=== PATIENT | female | born 1945 | race Caucasian/White ===

== ENCOUNTER → 2016-10-10 | Outpatient (CLI) | payer OTHER | LOC: FIMAGING 12:48 | PROVIDERS: ATTEND Internal Medicine Hematology & Oncology | DX: Z12.31 Encounter for screening mammogram for malignant neoplasm of breast (principal); Z85.3 Personal history of malignant neoplasm of breast; Z80.3 Family history of malignant neoplasm of breast | CPT/HCPCS: G0202 ==

== ENCOUNTER 2017-01-23 13:38 | Emergency (ER) | payer OTHER ==
[2017-01-23 13:47] VITALS: BP 131/88; PULSE 94; RESP 18; TEMP 97.2; O2SAT 96
--- NOTE | 2017-01-23 13:59 | EDPHY ---
HPI/HX/ROS/PE/MDM Narrative: CHIEF COMPLAINT: Cough for 1 month HPI: The patient is a 71-year-old female who was a smoker but denies other medical problems. She complains of a cough that has been present for approximately the last month. She describes occasional production of white foamy material but no green or yellow sputum nor hemoptysis. She denies chest pain. She states she gets extra fatigued only when it is hot. She denies cold symptoms. The patient saw her primary physician 2 weeks ago who ordered an outpatient chest x-ray, but patient has been too busy to get this test. She called today to get the test done but was told it would take 2 days to schedule an appointment and she chose not to wait. REVIEW OF SYSTEMS: Aside from elements discussed in the HPI, a comprehensive 10-point review of systems was reviewed and is negative. PMH: History of remote breast cancer. No history of blood clot. SOCIAL HISTORY: Patient is an active smoker. She runs a nonprofit organization. Denies drug abuse. PHYSICAL EXAM: General:Patient is alert, in no acute distress. ENT:Eyes are normal to inspection. ENT inspection normal. Neck: Normal inspection. Full range of motion. Respiratory:No respiratory distress. Breath sounds normal bilaterally. Cardiovascular: Regular rate and rhythm. Strong peripheral pulses. Normal cap refill. Abdomen:The abdomen is nontender to palpation. There are no peritoneal signs. There are normal bowel sounds. Back: Normal to inspection. No tenderness to palpation. Skin: Normal color. No rash. Warm and dry. Extremities: Normal appearance. Full range of motion. Neuro: Oriented x3. Normal motor function. Normal sensory function. ED Course: Chest x-ray read by the radiologist as negative for pneumonia or other acute process. Viewed and interpreted by myself. MDM: This patient presents with 1 month of cough in the absence of other symptoms. Her chest x-ray shows only COPD. I suspect her symptoms are likely secondary to chronic bronchitis from continued smoking. See no evidence for pneumonia, PE , ACS, CHF. Patient is comfortable with the plan to follow up with her primary care physician. Cautioned her to please stop smoking. - Data Points Imaging Results: Imaging Impressions Chest X-Ray 01/23/17 13:55 Impression: 1. Hyperexpansion suggests COPD with no superimposed acute abnormality identified. 2. Stable basilar opacities probably scarring with possible minimal associated atelectasis. Imaging: Discussed imaging studies w/ call center support representative Radiologist, I viewed and interpreted images myself General Time Seen by Provider: 01/23/17 13:44 Initial Vital Signs: Initial Vital Signs Temperature (C) 36.2 C 01/23/17 13:42 Heart Rate 94 01/23/17 13:42 Respiratory Rate 18 01/23/17 13:42 Blood Pressure 131/88 H 01/23/17 13:42 O2 Sat (%) 96 01/23/17 13:42 O2 Delivery Mode Room Air Allergies/Adverse Reactions: No Known Allergies Allergy (Verified 04/25/14 07:41) Home Medications: Medication Instructions Recorded Sertraline HCl 04/25/14 Departure - Departure Disposition: Home, Routine, Self-Care Clinical Impression: Bronchitis, COPD (chronic obstructive pulmonary disease) Condition: Good Instructions: Chronic Bronchitis (ED) Additional Instructions: Follow-up with your primary physician within 1 week. Please try to stop smoking. Return to the emergency department for chest pain, shortness of breath , fever, coughing up blood or other concerns. Referrals: EULALIO KUMAR [Primary Care Provider] - As per Instructions
== END 2017-01-23 14:38 | disposition home or self-care (01) ==
LOC: CED 13:38
DX: J44.9 Chronic obstructive pulmonary disease, unspecified (principal); F17.200 Nicotine dependence, unspecified, uncomplicated; Z85.3 Personal history of malignant neoplasm of breast
CPT/HCPCS: 71020-PO

== ENCOUNTER 2017-09-17 16:17 | Emergency (ER) | payer OTHER ==
[2017-09-17 16:30] VITALS: PULSE 82; TEMP 98.2
[2017-09-17] MEDS ORDERED: LEVALBUTEROL 0.63 MG/3 ML DEYVIAL IH ONE ×2 (16:40→20:59)
[2017-09-17] MEDS ORDERED: predniSONE 20 MG TAB PO ONE (16:41)
--- NOTE | 2017-09-17 16:44 | EDPHY ---
H & P Time Seen by Provider: 09/17/17 16:25 HPI/ROS: CHIEF COMPLAINT: Shortness of breath x1 week, cough HISTORY OF PRESENT ILLNESS: 72-year-old female presents emergency department reporting that over the last week she has had increase in her somewhat baseline shortness of breath. Her friend describes a very harsh and anguish sounding cough. Patient reports the cough has been productive of sputum on occasion. Low-grade fever to 99 and 100.4 over the last 2 days. Patient was seen at an emergency department in 4 in 4 days ago was treated with azithromycin. She thinks the azithromycin helped her ear discomfort and her swollen lymph nodes in her neck but did not help her cough. If anything she feels that the cough is worsening. Patient denies a history of chronic bronchitis, COPD, asthma, or emphysema. She denies a cardiac history. She denies history of pulmonary embolism. Reviewed the patient's charts demonstrate that in January of this year she had chest x-ray consistent with COPD. Patient does have a Qvar inhaler which was prescribed by her primary care physician which she uses intermittently. She reports anterior chest discomfort when coughing. Complains of abdominal discomfort secondary to frequent coughing. Reports nausea but no vomiting. No diarrhea. No palpitations, lightheadedness, dizziness, or fainting. REVIEW OF SYSTEMS: Aside from elements discussed in the HPI, a comprehensive 10-point review of systems was reviewed and is negative. PAST MEDICAL HISTORY: Current smoker. Questionable COPD history. SOCIAL HISTORY: Smoker. Primary care physician is Norma Kumar MD VITAL SIGNS Reviewed by me. GENERAL: Well-developed, well-nourished, resting comfortably in no obvious respiratory distress. HEENT: Atraumatic. Eyes: No icterus, no injection. Mouth: moist mucous membranes. No erythema or lesions. Neck: supple with no adenopathy. LUNGS: Clear to auscultation, however deep respirations elicits a cough. Cough is harsh, with expiratory wheeze. CARDIAC: Regular rate and rhythm, no rubs, murmurs or gallops. ABDOMEN: Soft, nontender, nondistended, bowel sounds normal. BACK: No CVA tenderness. EXTREMITIES: No trauma. No edema. Range of motion is normal throughout. NEURO: Alert and oriented, grossly nonfocal. SKIN: Warm and dry, no rash. PSYCHIATRIC: Normal mentation, no agitation. Smoking Status: Current every day smoker Constitutional: Initial Vital Signs Temperature (C) 36.8 C 09/17/17 16:24 Heart Rate 82 09/17/17 16:24 Respiratory Rate 16 09/17/17 16:24 Blood Pressure 144/96 H 09/17/17 16:24 O2 Sat (%) 93 09/17/17 16:24 O2 Delivery Mode Room Air Allergies/Adverse Reactions: No Known Allergies Allergy (Verified 04/25/14 07:41) Home Medications: Medication Instructions Recorded Sertraline HCl 04/25/14 Azithromycin 09/17/17 Benzonatate [Tessalon Pearles (RX)] 100 mg PO TID PRN #20 cap 09/17/17 Doxycycline Hyclate [Vibramycin 100 mg PO BID #14 cap 09/17/17 100 MG (*)] Levalbuterol Inhaler [Xopenex Hfa 1 - 2 puffs IH TID PRN #1 mdi 09/17/17 Inhaler (*)] predniSONE [prednisone 10mg (RX)] 40 mg PO DAILY 3 Days tab 09/17/17 Medical Decision Making - Diagnostics EKG Interpretation: 12-LEAD EKG: Please see the full report in [facility]. My interpretation: normal sinus rhythm, no ST or T-wave changes Imaging Results: Imaging Impressions Chest X-Ray 09/17/17 16:41 Impression: 1. Left lateral basilar segment pneumonia with small effusion. 2. Possibly increasing pleurally based density at the right apex. Consider chest CT with IV contrast for further evaluation of the right apex, when the patient is clinically able. Results called to Dr. Akilah Shepard. Imaging: Discussed imaging studies w/ call center analyst Radiologist, I viewed and interpreted images myself ED Course/Re-evaluation: 72-year-old female, smoker, with a long history of shortness of breath and intermittent coughing of now presents with exacerbation of her symptoms. Patient received a Xopenex neb as she reports that albuterol makes her very anxious and jittery. She was given 60 mg of prednisone. EKG: Normal sinus rhythm Chest x-ray: Left lower lobe infiltrate. Discussed patient's chest x-ray with Dr. Roche. Left lower lobe infiltrate with small effusion. Also, patient has had increased density of a right apex pleural base lesion. CT scan with contrast recommended. Patient reports a allergy to iodine Review of the patient's records demonstrated patient has CT scan with IV contrast in 2010 for which she was premedicated and did well. Patient received 125 mg Solu-Medrol IV and Benadryl 25 mg IV. Report on the CT scan of the chest with contrast was called to me by Dr. Harvey. See the full report but multiple findings. Bibasilar atelectasis with no definitive pneumonia. Scarring appears to be present in the apices which will require 3-[address] scan follow-up. No definitive malignancy identified. CT scan is suggestive of pulmonary fibrosis and emphysema. I explained the results of the CT scan with the patient. She would prefer not to be placed on antibiotics at this time as she states that she does not do well with them. She will be discharged with Xopenex Metered dose inhaler, short course of prednisone, Tessalon Perles for her cough, and instructions for close follow up with her primary care physician. Differential Diagnosis: Differential diagnosis for the patient's shortness of breath was considered including but not limited to pulmonary infectious processes, COPD exacerbation, pulmonary emboli, pulmonary edema, congestive heart failure, and cardiac causes. - Data Points Laboratory Results: Laboratory Results 09/17/17 17:55 09/17/17 17:55 09/17/17 09/17/17 09/17/17 17:55 17:55 17:55 WBC 15.58 10^3/uL H 10^3/uL (3.80-9.50) RBC 4.04 10^6/uL L 10^6/uL (4.18-5.33) Hgb 13.3 g/dL g/dL (12.6-16.3) POC Hgb 13.6 gm/dL gm/dL (12.6-16.3) Hct 38.1 % % (38.0-47.0) POC Hct 40 % % (38-47) MCV 94.3 fL fL (81.5-99.8) MCH 32.9 pg pg (27.9-34.1) MCHC 34.9 g/dL g/dL (32.4-36.7) RDW 13.1 % % (11.5-15.2) Plt Count 372 10^3/uL 10^3/uL (150-400) MPV 10.9 fL fL (8.7-11.7) Neut % (Auto) 66.2 % % (39.3-74.2) Lymph % (Auto) 22.8 % % (15.0-45.0) [place] % (Auto) 8.6 % % (4.5-13.0) Eos % (Auto) 1.4 % % (0.6-7.6) Baso % (Auto) 0.5 % % (0.3-1.7) Nucleat RBC Rel Count 0.0 % % (0.0-0.2) Absolute Neuts (auto) 10.30 10^3/uL H 10^3/uL (1.70-6.50) Absolute Lymphs (auto) 3.56 10^3/uL H 10^3/uL (1.00-3.00) Absolute Monos (auto) 1.34 10^3/uL H 10^3/uL (0.30-0.80) Absolute Eos (auto) 0.22 10^3/uL 10^3/uL (0.03-0.40) Absolute Basos (auto) 0.08 10^3/uL 10^3/uL (0.02-0.10) Absolute Nucleated RBC 0.00 10^3/uL 10^3/uL (0-0.01) Immature Gran % 0.5 % % (0.0-1.1) Immature Gran # 0.08 10^3/uL 10^3/uL (0.00-0.10) POC Sodium 138 mEq/L mEq/L (135-145) Sodium 139 mEq/L mEq/L (135-145) POC Potassium 3.5 mEq/L mEq/L (3.3-5.0) Potassium 3.8 mEq/L mEq/L (3.5-5.2) POC Chloride 103 mEq/L mEq/L (97-110) Chloride 101 mEq/L mEq/L (97-110) Carbon Dioxide 22 mEq/l mEq/l (22-31) Anion Gap 16 mEq/L mEq/L (8-16) POC BUN 16 mg/dL mg/dL (7-23) BUN 15 mg/dL mg/dL (7-23) Creatinine 0.8 mg/dL mg/dL (0.6-1.0) POC Creatinine 0.7 mg/dL mg/dL (0.6-1.0) Estimated GFR > 60 Glucose 108 mg/dL H mg/dL (70-100) POC Glucose 116 mg/dL H mg/dL (70-100) Calcium 9.5 mg/dL mg/dL (8.5-10.4) Medications Given: Discontinued Medications Diphenhydramine HCl (Benadryl Injection) 25 mg IVP EDNOW ONE Stop: 09/17/17 18:22 Last Admin: 09/17/17 18:31 Dose: 25 mg Levalbuterol (Xopenex 0.63mg Neb) 0.63 mg IH EDNOW ONE Stop: 09/17/17 16:41 Last Admin: 09/17/17 16:51 Dose: 0.63 mg Methylprednisolone Sodium Succinate (Solu-Medrol) 125 mg IVP EDNOW ONE Stop: 09/17/17 18:22 Last Admin: 09/17/17 18:36 Dose: 125 mg Prednisone (Prednisone) 60 mg PO EDNOW ONE Stop: 09/17/17 16:42 Last Admin: 09/17/17 16:50 Dose: 60 mg Point of Care Test Results: 09/17/17 17:55 POC Sodium 138 POC Potassium 3.5 POC Chloride 103 POC BUN 16 POC Creatinine 0.7 POC Glucose 116 H Departure - Departure Disposition: Home, Routine, Self-Care Clinical Impression: Chronic obstructive pulmonary disease with acute exacerbation, Cough Condition: Good Instructions: Acute Bronchitis (ED), COPD (Chronic Obstructive Pulmonary Disease) (ED), Chronic Cough (ED), How to Use a Nebulizer (ED) Additional Instructions: Please use the xopenex metered dose inhaler 3-4 times a day to help control your coughing and wheezing and shortness of breath. You been given a prescription of prednisone. Please take this as directed for the next 3 days starting tomorrow. You been given a prescription of doxycycline. Please begin taking this as directed. You may use the Tessalon Perles to help control your cough. Mucinex may also be helpful to thin the secretions. Drink plenty of water with Mucinex. Seek care urgently or follow up at the emergency department if you develop a fever, worsening symptoms despite the above treatment, significant shortness of breath, chest pain, vomiting, or other concerns. Follow up with your primary care physician. I strongly encourage you to consider pulmonary function tests. You will also need a repeat CT scan of your chest without IV contrast in 3-6 months. Referrals: NORMA KUMAR [Primary Care Provider] - As per Instructions Prescriptions: Benzonatate [Tessalon Pearles (RX)] 100 mg PO TID PRN #20 cap PRN Reason: Cough Doxycycline Hyclate [Vibramycin 100 MG (*)] 100 mg PO BID #14 cap Levalbuterol Inhaler [Xopenex Hfa Inhaler (*)] 1 - 2 puffs IH TID PRN #1 mdi PRN Reason: cough, shortness of breath predniSONE [prednisone 10mg (RX)] 40 mg PO DAILY 3 Days tab
--- NOTE | 2017-09-17 17:08 | CPEKG ---
Heart Rate: 84 RR Interval: 714 P-R Interval: 144 QRSD Interval: 90 QT Interval: 356 QTC Interval: 421 P [place]: 46 QRS [place]: 12 T Wave [place]: 39 EKG Severity - NORMAL ECG - EKG Impression: SINUS RHYTHM Electronically Signed By: Akilah Shepard 17-Sep-2017 18:56:54
[2017-09-17] MEDS ORDERED: IOPAMIDOL (ISOVUE 370) 100 ML BTL IV ONE (18:00)
[2017-09-17 18:03] LABS: PLATELET COUNT 372 10^3/uL (150-400)
[2017-09-17] MEDS ORDERED: methylPREDNISolone SOD SUCC 125 MG/2 ML VIAL IVP ONE (18:21)
[2017-09-17 21:29] VITALS: BP 105/73; RESP 20; O2SAT 99
== END 2017-09-17 21:29 | disposition home or self-care (01) ==
LOC: CED 16:18
DX: J44.1 Chronic obstructive pulmonary disease with (acute) exacerbation (principal); F17.200 Nicotine dependence, unspecified, uncomplicated
CPT/HCPCS: 71046; 71275; 93005; 96374; 96375; 99285; J1200; J2930; J7512; Q9967; 80048-PO; 82947-QW; 85025-PO

== ENCOUNTER → 2017-11-26 | Outpatient (CLI) | payer OTHER | LOC: FIMAGING 11:52 | PROVIDERS: ATTEND Internal Medicine Hematology & Oncology | DX: Z12.31 Encounter for screening mammogram for malignant neoplasm of breast (principal); Z85.3 Personal history of malignant neoplasm of breast ==

== ENCOUNTER 2018-07-22 14:12 | Emergency (ER) | payer OTHER ==
[2018-07-22] MEDS ORDERED: IPRATROPIUM/ALBUTEROL 3 ML DEYVIAL IH ONE (14:42)
[2018-07-22] MEDS ORDERED: predniSONE 20 MG TAB PO ONE (14:42)
[2018-07-22] MEDS ORDERED: AZITHROMYCIN 250 MG TAB PO ONE (14:43)
--- NOTE | 2018-07-22 14:46 | EDPHY ---
H & P Stated Complaint: SOB Time Seen by Provider: 07/22/18 14:36 HPI/ROS: CHIEF COMPLAINT: Cough HISTORY OF PRESENT ILLNESS: The patient is a 73-year-old female with a history of COPD who complains of having sinus congestion and upper respiratory symptoms for the last week and now deep cough productive of yellow sputum. No fevers. No body aches. No chest pain. She states that this is happened several times to her before and that she has always required antibiotics to get better. She does not wear oxygen at home. She does continue to smoke. She does not take any immunosuppressants at baseline. Severity: Moderate Modifying factors: None REVIEW OF SYSTEMS: Constitutional: denies: chills, fever, recent illness, recent injury EENTM: denies: blurred vision, double vision, nose congestion Respiratory: See HPI Cardiac: denies: chest pain, irregular heart rate, lightheadedness, palpitations Gastrointestinal/Abdominal: denies: abdominal pain, diarrhea, nausea, vomiting, blood streaked stools Genitourinary: denies: dysuria, frequency, hematuria, pain Musculoskeletal: denies: joint pain, muscle pain Skin: denies: lesions, rash, jaundice, bruising Neurological: denies: headache, numbness, paresthesia, tingling, dizziness, weakness Hematologic/Lymphatic: denies: blood clots, easy bleeding, easy bruising Immunologic/allergic: denies: HIV/AIDS, transplant 10 systems reviewed and negative except as noted EXAM: GENERAL: Well-appearing, well-nourished and in no acute distress. HEAD: Atraumatic, normocephalic. EYES: Pupils equal round and reactive to light, extraocular movements intact, sclera anicteric, conjunctiva are normal. ENT: TMs normal, nares patent, oropharynx clear without exudates. Moist mucous membranes. NECK: Normal range of motion, supple without lymphadenopathy or JVD. LUNGS: Bilateral lower lobe rhonchi, no wheezing, saturating 96% on room air HEART: Regular rate and rhythm without murmurs, rubs or gallops. ABDOMEN: Soft, nontender, normoactive bowel sounds. No guarding, no rebound. No masses appreciated. BACK: No CVA tenderness, no spinal tenderness, step-offs or deformities EXTREMITIES: Normal range of motion, no pitting or edema. No clubbing or cyanosis. NEUROLOGICAL: Cranial nerves II through XII grossly intact. Normal speech, normal gait. 5/5 strength, normal movement in all extremities, normal sensation , normal reflexes PSYCH: Normal mood, normal affect. SKIN: Warm, dry, normal turgor, no visible rashes or lesions. Source: Patient Exam Limitations: No limitations - Personal History Current Tetanus/Diphtheria Vaccine: No Current Tetanus Diphtheria and Acellular Pertussis (TDAP): No - Medical/Surgical History Hx Asthma: No Hx Chronic Respiratory Disease: No Hx Diabetes: No Hx Cardiac Disease: No Hx Renal Disease: No Hx Cirrhosis: No Hx Alcoholism: No Hx HIV/AIDS: No Hx Splenectomy or Spleen Trauma: No Other PMH: COPD,. Occasional allergies. Breast ca 7 yrs ago/lumpectomy and radiation - Family History Significant Family History: No pertinent family hx - Social History Smoking Status: Current every day smoker Alcohol Use: Sober Drug Use: None Constitutional: Initial Vital Signs Temperature (C) 36.5 C 07/22/18 14:28 Heart Rate 80 07/22/18 14:28 Respiratory Rate 20 07/22/18 14:28 Blood Pressure 164/88 H 07/22/18 14:28 O2 Sat (%) 94 07/22/18 14:28 O2 Delivery Mode Room Air Allergies/Adverse Reactions: No Known Allergies Allergy (Verified 07/22/18 14:27) Home Medications: Medication Instructions Recorded Sertraline HCl 04/25/14 Azithromycin 09/17/17 Benzonatate [Tessalon Pearles (RX)] 100 mg PO TID PRN #20 cap 09/17/17 Doxycycline Hyclate [Vibramycin 100 mg PO BID #14 cap 09/17/17 100 MG (*)] Levalbuterol Inhaler [Xopenex Hfa 1 - 2 puffs IH TID PRN #1 mdi 09/17/17 Inhaler (*)] predniSONE [prednisone 10mg (RX)] 40 mg PO DAILY 3 Days tab 09/17/17 Azithromycin 250 mg PO DAILY #4 tablet 07/22/18 predniSONE 60 mg PO DAILY #15 tab 07/22/18 Medical Decision Making - Diagnostics Imaging Results: Imaging Impressions Chest X-Ray 07/22/18 14:40 Impression: 1. No pneumonia or acute process. 2. Chronic bronchitis and interstitial lung disease is similar to August 2017. Imaging: Discussed imaging studies w/ director of testing Radiologist ED Course/Re-evaluation: The patient is requesting antibiotics as well as a breathing treatment and steroids. She states that the combination has worked well for her in the past. I will also obtain a chest x-ray because of the respiratory findings on exam. She is otherwise well-appearing, afebrile and not hypoxic. She does not wish to have blood work. I do not think that she will require admission. 3:15 p.m. we discussed the x-ray results. She had pneumonia during her x-ray in August as well. It looks similar to today could represent scarring. Pneumonia fits clinically with her exam findings and history. I will start her on azithromycin which she states worked well for her last time. She is also requesting prednisone. She will use her inhaler at home as needed. We discussed indications for returning. Differential Diagnosis: Partial list of the Differential diagnosis considered include but were not limited to; pneumonia, COPD exacerbation, bronchitis and although unlikely based on the history and physical exam, I also considered pneumothorax, PE, acute coronary disease, sepsis. I discussed these differential diagnoses and the plan with the patient as well as the usual and expected course. The patient understands that the diagnosis is provisional and that in medicine we are not always correct and that further workup is often warranted. Usual and customary warnings were given. All of the patient's questions were answered. The patient was instructed to return to the emergency department should the symptoms at all worsen or return, otherwise to followup with the physician as we discussed. - Data Points Medications Given: Discontinued Medications Albuterol/Ipratropium (Duoneb) 3 ml IH EDNOW ONE Stop: 07/22/18 14:43 Last Admin: 07/22/18 14:56 Dose: 3 ml Azithromycin (Zithromax) 500 mg PO EDNOW ONE PRN Reason: Protocol Stop: 07/22/18 14:44 Last Admin: 07/22/18 14:55 Dose: 500 mg Prednisone (Prednisone) 60 mg PO EDNOW ONE Stop: 07/22/18 14:43 Last Admin: 07/22/18 14:54 Dose: 60 mg Departure - Departure Disposition: Home, Routine, Self-Care Clinical Impression: Left lower lobe pulmonary infiltrate COPD (chronic obstructive pulmonary disease) Qualifiers: COPD type: chronic bronchitis Chronic bronchitis type: simple Qualified Code(s) : J41.0 - Simple chronic bronchitis Condition: Fair Instructions: COPD (Chronic Obstructive Pulmonary Disease) (ED), Pneumonia (ED) Referrals: EULALIO KUMAR [Primary Care Provider] - As per Instructions Prescriptions: Azithromycin 250 mg PO DAILY #4 tablet predniSONE 60 mg PO DAILY #15 tab
[2018-07-22 15:33] VITALS: BP 155/86
== END 2018-07-22 15:33 | disposition home or self-care (01) ==
LOC: CED 14:12
DX: J44.9 Chronic obstructive pulmonary disease, unspecified (principal); F17.200 Nicotine dependence, unspecified, uncomplicated
CPT/HCPCS: 71046; J7512; 99284-ER